=== PATIENT | male | born 1990 | race Caucasian/White ===

== ENCOUNTER → 2016-06-10 | Outpatient (CLI) | payer MEDICAID | LOC: FIMAGING 11:28 | PROVIDERS: ATTEND Internal Medicine | DX: S83.521A Sprain of posterior cruciate ligament of right knee, initial encounter (principal) ==

== ENCOUNTER 2016-10-08 09:13 | Emergency (ER) | payer MEDICAID ==
[2016-10-08 09:34] VITALS: BP 141/71; PULSE 70; RESP 16; TEMP 97.7; O2SAT 96
--- NOTE | 2016-10-08 09:56 | EDPHY ---
H & P Stated Complaint: Lac to R thumb 2 wks ago;concern re:infection HPI/ROS: CHIEF COMPLAINT: thumb laceration, possible infection HISTORY OF PRESENT ILLNESS: Patient complains of possible infection of right thumb laceration. He sustained a laceration 2 weeks ago wall drug only knives. He says he does this routinely and has had minimal problems in the past. In this instance, he accidentally cut his right thumb, palmar, ulnar aspect of the thumb. No difficulty moving the finger. No fever or chills. Minimal swelling. He feels that it was infected as he describes "pushing some puss out of it" yesterday afternoon. He has has no surrounding redness. No redness of the hand. No difficulty moving the fingers or wrist. Tetanus status is up-to- date as of less than 2 years ago. He has not been seen by any providers until today. TIME OF INJURY: 2 weeks ago TETANUS STATUS: Updated less than 2 years ago REVIEW OF SYSTEMS: Ten systems reviewed and are negative unless otherwise noted in the HPI EXAMINATION General Appearance: Alert, no distress Head: normocephalic, atraumatic Cardiovascular: Pulses normal throughout. Symmetric radial pulses are 2+. Brisk cap refill Neurological: A&O, sensory symmetric, strength symmetric. Normal 2 point sensation all 5 fingers on the right hand. Skin: Warm and dry, no rash. There is a laceration on the right thumb, ulnar aspect and palmar. It is approximately 1.5 cm. There is wound healing present. There is minimal distraction of the wound margins. No purulence. No surrounding erythema or fluctuance. Extremities: Mild tenderness over right thumb laceration. He has full flexion extension of all fingers. Full opposition, abduction and abduction of the thumb. There is no warmth or swelling around the joint. No evidence of septic joint or articular involvement. Neurovascular intact distal to the laceration pain. DIFFERENTIAL DIAGNOSES: Including but not limited to skin laceration with delayed closure, skin laceration without care, superficial skin infection, cellulitis, abscess MDM: 9:53 a.m. Laceration of the right thumb 2 weeks ago. The patient is concern for infection. There is minimal surrounding erythema. He says that he x-rays purulence to this. I do not appreciate any signs of infection in the thumb or in the joint. No evidence of abscess. No indication for closure at this is 2- week-old. There is minimal distraction wound margins. He has full range of motion without any warmth or edema. Prophylax him with Augmentin. He is to follow up with hand surgeon or primary care physician for definitive care. ED Precautions: Worsening pain. Erythema, edema, cyanosis, pallor, paresthesia or anesthesia. SUPERVISION: This patient was independently evaluated without direct examination by the attending physician. Case was discussed with attending physician. Source: Patient Exam Limitations: No limitations - Personal History Current Tetanus Diphtheria and Acellular Pertussis (TDAP): Yes Tetanus Vaccine Date: 06/29/2013 - Medical/Surgical History Hx Asthma: No Hx Chronic Respiratory Disease: No Hx Diabetes: No Hx Cardiac Disease: No Hx Renal Disease: No Hx Cirrhosis: No Hx Alcoholism: No Hx HIV/AIDS: No Hx Splenectomy or Spleen Trauma: No Other PMH: DENIES PMH. PSH: TONSILS - Social History Smoking Status: Current every day smoker Constitutional: Initial Vital Signs Temperature (C) 97.7 F 10/08/16 09:25 Heart Rate 70 10/08/16 09:25 Respiratory Rate 16 10/08/16 09:25 Blood Pressure 141/71 H 10/08/16 09:25 O2 Sat (%) 96 10/08/16 09:25 O2 Delivery Mode Room Air Allergies/Adverse Reactions: No Known Allergies Allergy (Verified 10/08/16 09:31) Home Medications: Medication Instructions Recorded Amoxicillin/Clavulanate Pot 875 mg PO BID #20 tab 10/08/16 [Augmentin 875 MG TAB (*)] Departure - Departure Disposition: Home, Routine, Self-Care Clinical Impression: Laceration of thumb with delay in treatment Qualifiers: Encounter type: initial encounter Laterality: right Qualified Code(s): S61.011A - Laceration without foreign body of right thumb without damage to nail , initial encounter Condition: Good Instructions: Laceration Without Closure (ED) Additional Instructions: 1. Keep the wound clean, dry cover next 2. Antibiotics as prescribed to completion 3. Follow up with primary care physician or hand surgeon for further care 4. Return here for increasing redness, purulence, fever or difficulty moving the thumb Referrals: SUZANNA WESLEY [Other] - As per Instructions Prescriptions: Amoxicillin/Clavulanate Pot [Augmentin 875 MG TAB (*)] 875 mg PO BID #20 tab
== END 2016-10-08 10:01 | disposition home or self-care (01) ==
DX: S61.011A Laceration without foreign body of right thumb without damage to nail, initial encounter (principal); F17.200 Nicotine dependence, unspecified, uncomplicated; W26.0XXA Contact with knife, initial encounter